=== PATIENT | female | born 1970 | race Caucasian/White ===

== ENCOUNTER 2017-09-26 20:06 | Emergency (ER) | payer MEDICAID, OTHER ==
[~2017-09-26] VITALS: Ht 162.6 cm; Wt 87.9 kg
[2017-09-26 20:10] VITALS: Ht 162.6 cm; Wt 87.9 kg
[2017-09-26] MEDS ORDERED: KETOROLAC 30 MG INJ IM STA (22:16)
[2017-09-26] MEDS ORDERED: LORAZEPAM 1 MG TAB PO ONE (22:30)
--- NOTE | 2017-09-26 23:22 | RADRPT ---
PROCEDURE: XR Chest. CLINICAL INDICATION: Shortness of breath status post breast biopsy TECHNIQUE: PA and Lateral views of the chest were obtained. COMPARISON: None. FINDINGS: The cardiomediastinal silhouette is within normal limits. The lungs are clear. No signs of pleural f luid or pneumothorax are seen. The osseous structures and soft tissues are unremarkable. IMPRESSION: No evidence for active cardiopulmonary disease. RPTAT: HJES .Pepe Mantilla MD, MD Date Time Electronically viewed and signed by .Pepe Mantilla MD, MD on 09/26/2017 23:22 .S/
[2017-09-26] MEDS ORDERED: IBUP-1542 PO (23:54)
[2017-09-27 00:01] VITALS: BP 125/65; PULSE 80; RESP 20; TEMP 98
--- NOTE | 2017-09-27 00:04 | ERD ---
ER Documentation Chief Complaint Chief Complaint left breast pain, left shoulder pain, back pain, sob today HPI Patient is a 47-year-old female with recent diagnosis of left sided breast cancer who presents to the ED for concerns of left-sided breast pain, left axillary pain and left-sided upper back pain which started 2 days ago. Patient states she underwent a needle biopsy on 09-23-17. At that time she was advised that she did have breast cancer and would need to start radiation therapy. Patient states she scheduled to follow-up with her doctor in 2 days. Patient states today she started to feel shortness of breath. Patient also reports feeling anxious. Patient denies any chest pain, left arm pain, diaphoresis, nausea, vomiting or loss consciousness. Denies any fevers or chills. Patient denies taking any medication for her pain. ROS All systems reviewed and are negative except as per history of present illness. Medications Home Meds Active Scripts Ibuprofen* (Motrin*) 600 Mg Tab, 600 MG PO Q6, #20 TAB Prov:GOVIND MORALES PA-C 09/26/17 Allergies Allergies: Coded Allergies: No Known Allergy (Unverified , 09/26/17) PMhx/Soc Medical and Surgical Hx: pt denies Surgical Hx Hx Miscellaneous Medical Probl: Yes (left breast CA newly dx on 09/23/17 ) Hx Alcohol Use: No Hx Substance Use: No Hx Tobacco Use: No Smoking Status: Never smoker Physical Exam Vitals Vital Signs Date Time Temp Pulse Resp B/P Pulse Ox O2 Delivery O2 Flow Rate FiO2 09/26/17 20:10 98.7 89 20 123/68 99 Physical Exam GENERAL: Well-developed, well-nourished female. Appears anxious. HEAD: Normocephalic, atraumatic. EYES: Pupils are equally reactive bilaterally. EOMs grossly intact. No conjunctival erythema. ENT: Moist mucous membranes. No uvula deviation. No kissing tonsils. NECK: Supple. Normal range of motion of the neck. Tender to palpation of the left trapezius muscle. CHEST WALL: Tender to palpation of the left chest wall. Pain is reproducible. BREAST: Left breast noted to have ecchymosis in the lower quadrants. Palpable mass at 4 oclock position. Left breast in tender to palpation. Tender to palpation in the L axilla. Ecchymosis noted in L axilla. LUNGS: Clear to auscultation bilaterally. No rhonchi, wheezing, rales or coarse breath sounds. HEART: Regular rate and rhythm. No murmurs, rubs or gallops. BACK: No midline tenderness. EXTREMITIES: Equal pulses bilaterally. No peripheral clubbing, cyanosis or edema. No unilateral leg swelling. NEUROLOGIC: Alert and oriented. Moving all four extremities without any difficulty. Normal speech. Steady gait. SKIN: Normal color. Warm and dry. No rashes or lesions. Results 24 hrs Laboratory Tests Test 09/26/17 22:51 Troponin I < 0.012ng/ml Current Medications Medications (Trade) Dose Ordered Sig/Rain Route PRN Reason Start Time Stop Time Status Last Admin Dose Admin Ketorolac Tromethamine (Toradol) 30 mg ONCE STAT IM 09/26/17 22:16 09/26/17 22:19 DC 09/26/17 22:46 Lorazepam (Ativan) 1 mg ONCE ONCE PO 09/26/17 22:30 09/26/17 22:31 DC 09/26/17 22:45 Procedures/MDM ED COURSE: The patient was stable throughout ED course. I kept the patient and/or family informed of laboratory and diagnostic imaging results throughout the ED course. EKG: Read by Dr. Hutchison, attending physician. EKG shows normal sinus rhythm at a rate of 73 bpm. No arrhythmias or acute ST elevations noted. DIAGNOSTIC IMAGING: Read by radiologist. Patient: GRICEL HILLMAN : 1970 Age: 47 Sex: F MR #: [id number] DOS: 09/26/17 2216 Ordering MD: GOVIND MORALES PA-C Location: [facility] Room/Bed: PROCEDURE: XR Chest. CLINICAL INDICATION: Shortness of breath status post breast biopsy TECHNIQUE: PA and Lateral views of the chest were obtained. COMPARISON: None. FINDINGS: The cardiomediastinal silhouette is within normal limits. The lungs are clear. No signs of pleural fluid or pneumothorax are seen. The osseous structures and soft tissues are unremarkable. IMPRESSION: No evidence for active cardiopulmonary disease. RPTAT: HJES .Pepe Mantilla MD, MD Date Time Electronically viewed and signed by .Pepe Mantilla MD, MD on 09/26/2017 23:22 .S/ CC: GOVIND MORALES PA-C PROCEDURES: None. MEDICATIONS GIVEN: Toradol, Ativan Patient tolerated medication well with no adverse reactions. MEDICAL DECISION MAKING: This is a 47-year-old female presents with left-sided breast pain, left axillary pain and shortness of breath. Patient went breast biopsy 3 days ago and was recently diagnosed with breast cancer.. Patient states her shortness of breath started earlier today. She denied taking any medication for her pain postbiopsy. Vital signs were reviewed. Patient was afebrile. Patient was not hypoxic. Cardiac exam was normal. Lung exam was normal. Ecchymosis is noted on the patient's left breast. Patient did have reproducible pain of her left chest wall and breast. Blood work was obtained. Troponin was negative. EKG showed normal sinus rhythm, no ST elevations. Chest x-ray was within normal limits. At this time by the patient's presentation is most consistent with left -sided breast pain and chest wall pain after biopsy. Low suspicion for ACS, carditis, arrhythmia, PE, pneumothorax, pneumonia, aortic dissection. Patient was advised to follow-up with her primary care physician for further management of her symptoms. Patient was noted to be less anxious and laughing with her friend at bedside prior to discharge. She reported significant improvement in symptoms prior to discharge and wished to go home. PRESCRIPTIONS: Ibuprofen DISCHARGE: At this time, patient is stable for discharge and outpatient management. I have instructed the patient to follow-up with his/her primary care physician in 1-2 days. If symptoms persist, patient may need to see a specialist for further examinations and testing. I have instructed the patient to promptly return to the ER at any time for any new or worsening symptoms including increased increased pain, fever, nausea, vomiting, numbness, weakness, diaphoresis or LOC. The patient and/or family expressed understanding of and agreement with this plan. All questions were answered. Home care instructions were provided. Disclaimer: Inadvertent spelling and grammatical errors are likely due to EHR/ dictation software use and do not reflect on the overall quality of patient care. Also, please note that the electronic time recorded on this note does not necessarily reflect the actual time of the patient encounter. Departure Diagnosis: Primary Impression: Breast pain Condition: Stable Patient Instructions: Breast Mass, Uncertain Cause Referrals: [facility] YOU HAVE RECEIVED A MEDICAL SCREENING EXAM AND THE RESULTS INDICATE THAT YOU DO NOT HAVE A CONDITION THAT REQUIRES URGENT TREATMENT IN THE EMERGENCY DEPARTMENT. FURTHER EVALUATION AND TREATMENT OF YOUR CONDITION CAN WAIT UNTIL YOU ARE SEEN IN YOUR DOCTORS OFFICE WITHIN THE NEXT 1-2 DAYS. IT IS YOUR RESPONSIBILITY TO MAKE AN APPOINTMENT FOR FOLOW-UP CARE. IF YOU HAVE A PRIMARY DOCTOR --you should call your primary doctor and schedule an appointment IF YOU DO NOT HAVE A PRIMARY DOCTOR YOU CAN CALL OUR PHYSICIAN REFERRAL HOTLINE AT IF YOU CAN NOT AFFORD TO SEE A PHYSICIAN YOU CAN CHOSE FROM THE FOLLOWING [facility] [address] [facility]. [facility] [address] [facility] [facility] [address] [facility] [address] [facility] [address] [facility]. [facility] [address] [facility]. [facility] YOU HAVE RECEIVED A MEDICAL SCREENING EXAM AND THE RESULTS INDICATE THAT YOU DO NOT HAVE A CONDITION THAT REQUIRES URGENT TREATMENT IN THE EMERGENCY DEPARTMENT. FURTHER EVALUATION AND TREATMENT OF YOUR CONDITION CAN WAIT UNTIL YOU ARE SEEN IN YOUR DOCTORS OFFICE WITHIN THE NEXT 1-2 DAYS. IT IS YOUR RESPONSIBILITY TO MAKE AN APPOINTMENT FOR FOLOW-UP CARE. IF YOU HAVE A PRIMARY DOCTOR --you should call your primary doctor and schedule and appointment IF YOU DO NOT HAVE A PRIMARY DOCTOR YOU CAN CALL OUR PHYSICIAN REFERRAL HOTLINE AT . IF YOU CAN NOT AFFORD TO SEE A PHYSICIAN YOU CAN CHOSE FROM THE FOLLOWING [facility] INSTITUTIONS: [facility] [address] [place] [address] [facility] [address] [place] [address] [facility] + [facility] [address] [place] [address] Additional Instructions: Call your primary care doctor TOMORROW for an appointment during the next 1-2 days.See the doctor sooner or return here if your condition worsens before your appointment time. GOVIND MORALES PA-C Sep 27, 2017 00:04
== END 2017-09-27 00:12 | disposition home or self-care (01) ==
LOC: FTE 20:06
DX: N64.4 Mastodynia (principal); C50.912 Malignant neoplasm of unspecified site of left female breast
CPT/HCPCS: 71020; 84484; 93005; 96372; J1885; Z7502; Z7610

== ENCOUNTER 2017-10-21 06:06 | Inpatient (IN) | payer MEDICAID ==
[~2017-10-21] VITALS: Ht 157.5 cm; Wt 86.5 kg
[2017-10-21] VITALS (26 sets, daily range): BP systolic 114–165; BP diastolic 50–83; PULSE 63–82; RESP 9–19; Ht 157.5 cm; Wt 86.5 kg
[2017-10-21] MEDS: SOD CHLORIDE 0.9% 1,000 ML IV SCH ×2 (06:00→19:20)
[~2017-10-21 06:06] MED LIST: CEFAZOLIN 1 GM/50 ML (PMX) 50 ML IVPB SCH; IBUP-1542 PO
[2017-10-21] MEDS ORDERED: LIDOCAINE 2% (SDV) 5 ML INJ ONE (07:03)
[2017-10-21] MEDS ORDERED: PROPOFOL 20 ML ONE (07:03)
[2017-10-21] MEDS ORDERED: MIDAZOLAM 1 MG/ML 2 ML INJ ONE (07:03)
[2017-10-21] MEDS ORDERED: FENTAnyl 50 MCG/ML VIAL ONE (07:03)
[2017-10-21] MEDS ORDERED: CEFAZOLIN 1 GM INJ ONE (07:04)
[2017-10-21] MEDS ORDERED: ONDANSETRON 4 MG INJ ONE (08:28)
[2017-10-21] MEDS ORDERED: METOCLOPRAMIDE 10 MG INJ ONE (08:28)
[2017-10-21] MEDS ORDERED: DEXAMETHASONE 4 MG/ML 1 ML INJ ONE (08:28)
[2017-10-21] MEDS ORDERED: FAMOTIDINE 20 MG INJ ONE (08:28)
[2017-10-21] MEDS ORDERED: HYDROmorphONE 2 MG/ML SYG ONE (08:47)
[2017-10-21] MEDS ORDERED: HYDROmorphONE (0.2 MG/ML) 10ML SYG IV PRN ×3 (09:00)
[2017-10-21] MEDS ORDERED: FENTAnyl 50 MCG/ML VIAL IV PRN ×3 (09:00)
[2017-10-21] MEDS ORDERED: DIPHENHYDRAMINE 50 MG INJ IV PRN (09:00)
[2017-10-21] MEDS ORDERED: OXYCODONE/ACETAMINOPHEN (5/325) TAB PO PRN ×2 (09:00)
[2017-10-21] MEDS ORDERED: ONDANSETRON 4 MG INJ IV PRN ×2 (09:00→10:00)
[2017-10-21] MEDS ORDERED: MEPERIDINE 25 MG INJ IV PRN (09:00)
[2017-10-21] MEDS ORDERED: PROCHLORPERAZINE 10 MG INJ IV PRN (09:00)
--- NOTE | 2017-10-21 09:45 | SIPON ---
Date/Time of Note Date/Time of Note DATE: 10/21/17 TIME: 09:44 Operative Report Preoperative Diagnosis Locally advanced left breast cancer Postoperative Diagnosis Same Operation/Procedure Performed Left modified radical mastectomy Surgeon see signature line records management assistant Dr Redman Anesthesia: general Estimated blood loss: 10 - 50 ml's Transfusion Required none Specimen Left breast and axillary contents Grafts/Implants none Complications none MAGALI NG MD Oct 21, 2017 09:45
[2017-10-21] MEDS ORDERED: EPHEDrine SULFATE 50 MG/5 ML SYG ONE (09:46)
[2017-10-21] MEDS ORDERED: ACETAMINOPHEN 1000MG/100ML IV 100 ML IVPB PRN (10:00)
[2017-10-21] MEDS ORDERED: LABETALOL HCL 20MG INJ IV PRN (10:00)
[2017-10-21] MEDS ORDERED: hydrALAzine 20 MG INJ IV PRN (10:00)
--- NOTE | 2017-10-21 10:28 | OPR ---
DATE OF OPERATION: 10/21/2017 PREOPERATIVE DIAGNOSIS: Locally advanced left breast cancer. POSTOPERATIVE DIAGNOSIS: Locally advanced left breast cancer. OPERATION PERFORMED: Left modified radical mastectomy. ANESTHESIA: General. ANESTHESIOLOGIST: Dr. Nova SURGEON: Dr. Travis CHIEF RESERVOIR ENGINEERING: Mikey Coburn MD INDICATIONS FOR PROCEDURE: The patient is a 47-year-old female who presented with a very large, at least 6 cm, mass in the central location within her left breast. She also had palpable axillary lym ph nodes. Workup including biopsies of both the mass and the lymph nodes were positive for invasive cancer. She was seen in the office and counseled as to the need for modified radical mastectomy as she was not a candidate for neoadjuvant chemo due to the fact that she was HER2 negative. She cons ented and she was scheduled for surgery. DESCRIPTION OF PROCEDURE: The patient was brought to the operating theater, placed under general an esthesia. The left breast and axillary region was prepped and draped in usual sterile fashion. Bob nned elliptical incision was demarcated with marking pen widely around the nipple areolar complex. The incision was carried out with 15 blade scalpel. Subcutaneous tissue was dissected with cautery. The skin edges were then elevated with Allis Shackelford clamps and skin flaps were created in a sequent ial fashion using cautery, first superiorly to the clavicle, then medially to the sternal border, in feriorly to the inframammary fold and laterally until the latissimus dorsi muscle had been identifie d throughout its course. Mastectomy then took place from medial to lateral using cautery. At the b order of the pectoralis major muscle, the pectoralis minor muscle was identified. The clavipectoral fascia was incised allowing entry into the axilla. With blunt dissection along the chest wall, the long thoracic nerve was identified. More superiorly, the axillary vein was identified. There was a large amount of metastatic disease within the lymph nodes necessitating en bloc resection of some intercostal brachial nerves. The lymphovascular structures were controlled by either using the Liga Sure device or using clips. Final connective tissue attachments to the latissimus dorsi muscle was then transected with cautery. Specimen was removed, oriented and sent for permanent pathologic anal ysis. There were additional palpable level 2 lymph nodes which were resected separately and sent fo r permanent pathologic analysis. The wound was then irrigated. Minimal bleeding was controlled with cautery. Two #10 flat Jesu-P ratt drains were then brought through the left mid axillary line. One was cut to size and laid with in the axilla, the other was laid over the pectoralis major muscle. Both drains were secured in bob ce with 2-0 nylon sutures in standard fashion, and final skin approximation took place using skin st aples. The patient tolerated procedure well. Estimated blood loss was 50 mL. There were no compli cations and the patient was transported in stable condition to the recovery room. Dictated By: MAGALI TRAVIS MD TL/LOGAN Conf#: [id number] DID#: [id number] CC: MIKEY COBURN MD;*EndCC*
[2017-10-21] MEDS: D5W-0.45 NACL + KCL 20 MEQ 1,000 ML IV SCH ×2 (11:09→21:47)
--- NOTE | 2017-10-21 12:53 | HP ---
DATE OF ADMISSION: 10/21/2017 HISTORY OF PRESENT ILLNESS: The patient is a 47-year-old pleasant female who had her 4th b ariana approximately 3 years ago and had trouble . The patient subsequently underwent fur ther evaluation and noted to have a very large mass in the central location of her left breast. She also had palpable axillary lymph node. Subsequent biopsy of the mass was positive for invasive can cer. Patient is ER/MN positive and HER2 negative. The patient is not a candidate for neoadjuvant c hemotherapy and patient was evaluated by Dr. Travis and was brought to the hospital and underwent a l eft modified radical mastectomy today. Postoperatively, patient is experiencing moderate pain and p atient will be admitted for further management. PAST MEDICAL HISTORY: Patient denies having any chronic conditions. Stated that she is otherwise h ealthy. PAST SURGICAL HISTORY: The patient denies having surgeries in the past. FAMILY HISTORY: Negative for any ovarian and breast cancer. SOCIAL HISTORY: Patient lives at home with her family, has 4 kids. The patient denies any alcohol use. Denies any tobacco use, denies any illicit drug use. ALLERGIES: NO KNOWN ALLERGIES. HOME MEDICATIONS: Ibuprofen p.r.n. for pain. REVIEW OF SYSTEMS: A 12-point review of systems negative unless what mentioned in the HPI. PHYSICAL ASSESSMENT: GENERAL: Well-developed, obese female currently is awake, alert, in no acute distress. VITAL SIGNS: Temperature is 98.2, pulse is 70, blood pressure 139/58, respiratory rate 19, oxygen s aturation 98% on 2 liters nasal cannula. HEENT: Head is atraumatic, normocephalic. Pupils equal, round, reactive to light and accommodation . Oral mucosa is pink and moist. NECK: Supple, no cervical lymphadenopathy, no thyromegaly. LUNGS: Clear bilaterally. There is no rhonchi, wheezes, rales noted. CARDIOVASCULAR: Normal S1, S2. No murmurs, gallops . CHEST: Status post left mastectomy with dry, clean, intact dressing and axillary JPs x2. ABDOMEN: Protuberant, soft, nondistended, nontender. Bowel sounds present. There is no guarding, no rebound or tenderness. EXTREMITIES: No edema, clubbing, cyanosis. SKIN: There is no rash, petechiae noted. NEUROLOGIC: The patient is awake, alert and oriented x4. No focal deficits noted. Motor strength is 5/5 in all extremities. ASSESSMENT AND PLAN: 1. Locally advanced left breast cancer status post left modified radical mastectomy by Dr. Travis on 10/21/2017. Will continue postoperative antibiotics and IV fluids, morphine and acetaminophen p.r. n. for pain and Zofran p.r.n. for nausea. Sequential compression device for deep venous thrombosis prophylaxis. 2. Obesity with body mass index of 34.9. Further recommendations based on clinical course. Plan o f care discussed with Dr. Donahue. Dictated By: ORTIZ MOORE GOLF BALL TRIMMER for SANJIV DONAHUE MD SR/NTS Conf#: [id number] DID#: [id number]
[2017-10-21] MEDS: morphine 2 MG INJ IV PRN (16:10)
[2017-10-22 00:12] VITALS: BP 99/50; RESP 18
[2017-10-22] MEDS: D5W-0.45 NACL + KCL 20 MEQ 1,000 ML IV SCH ×2 (01:45→08:45)
[2017-10-22] MEDS: morphine 2 MG INJ IV PRN ×2 (03:32→08:45)
[2017-10-22 05:24] LABS: BASOPHILS % 0.2 % (0.0-2.0); EOSINOPHILS # 0.1 10^3/ul (0.0-0.5); EOSINOPHILS % 0.5 % (0.0-7.0); HEMATOCRIT 32.6 % (37.0-47.0); HEMOGLOBIN 10.7 g/dl (12.0-16.0); LYMPHOCYTES # 2.4 10^3/ul (0.8-2.9); LYMPHOCYTES % 21.7 % (15.0-51.0); MEAN CORPUSCULAR HEMOGLOBIN 29.6 pg (29.0-33.0); MEAN CORPUSCULAR HGB CONC 32.8 g/dl (32.0-37.0); MEAN CORPUSCULAR VOLUME 90.1 fl (82.0-101.0); MEAN PLATELET VOLUME 11.2 fl (7.4-10.4); MONOCYTE # 0.8 10^3/ul (0.3-0.9); MONOCYTES % 7.1 % (0.0-11.0); NEUTROPHIL # 7.7 10^3/ul (1.6-7.5); PLATELET COUNT 218 10^3/UL (140-415); RED BLOOD COUNT 3.62 10^6/ul (4.20-5.40)
[2017-10-22 05:53] LABS: CALCIUM 8.5 mg/dl (8.4-10.2); CREATININE 0.74 mg/dl (0.44-1.00); POTASSIUM 4.1 mmol/L (3.5-5.1)
[2017-10-22 07:48] VITALS: BP 99/54; RESP 18
[2017-10-22] MEDS ORDERED: HYDR-906 PO (14:15)
--- NOTE | 2017-10-22 16:30 | DS ---
Date/Time of Note Date/Time of Note DATE: 10/22/17 TIME: 16:29 Discharge Summary Admission/Discharge Info Admit Date/Time Oct 21, 2017 at 09:45 Discharge Date/Time Patient Condition: Stable Hx of Present Illness The patient is a 47-year-old pleasant female who had her 4th baby approximately 3 years ago and had trouble . The patient subsequently underwent further evaluation and noted to have a very large mass in the central location of her left breast. She also had palpable axillary lymph node. Subsequent biopsy of the mass was positive for invasive cancer. Patient is ER/[place] positive and HER2 negative. The patient is not a candidate for neoadjuvant chemotherapy and patient was evaluated by Dr. Travis and was brought to the hospital and underwent a left modified radical mastectomy today. Postoperatively, patient is experiencing moderate pain and patient will be admitted for further management. Hospital Course 1. Locally advanced left breast cancer status post left modified radical mastectomy by Dr. Travis on 10/21/2017. Will continue postoperative antibiotics and IV fluids, morphine and acetaminophen p.r.n. for pain and Zofran p.r.n. for nausea. Sequential compression device for deep venous thrombosis prophylaxis. D /W Dr Redman, d/c planning. 2. Obesity with body mass index of 34.9. Plan of care discussed with Dr. Donahue. Home Meds Active Scripts Ibuprofen* (Motrin*) 600 Mg Tab, 600 MG PO Q6, #20 TAB Prov:GOVIND MORALES PA-C 09/26/17 Follow-up Plan Follow-up with Dr. Travis in 1 week Primary Care Provider Not On Staff Doctor Pending Labs Laboratory Tests Test 10/22/17 04:50 White Blood Count 11.010^3/ul (4.8-10.8) Red Blood Count 3.6210^6/ul (4.20-5.40) Hemoglobin 10.7g/dl (12.0-16.0) Hematocrit 32.6% (37.0-47.0) Mean Corpuscular Volume 90.1fl (82.0-101.0) Mean Corpuscular Hemoglobin 29.6pg (29.0-33.0) Mean Corpuscular Hemoglobin Concent 32.8g/dl (32.0-37.0) Red Cell Distribution Width 13.0% (11.5-14.5) Platelet Count 50592^3/UL (140-415) Mean Platelet Volume 11.2fl (7.4-10.4) Neutrophils % 70.0% (39.0-77.0) Lymphocytes % 21.7% (15.0-51.0) Monocytes % 7.1% (0.0-11.0) Eosinophils % 0.5% (0.0-7.0) Basophils % 0.2% (0.0-2.0) Nucleated Red Blood Cells % 0.0/100WBC (0.0-0.0) Neutrophils # 7.710^3/ul (1.6-7.5) Lymphocytes # 2.410^3/ul (0.8-2.9) Monocytes # 0.810^3/ul (0.3-0.9) Eosinophils # 0.110^3/ul (0.0-0.5) Basophils # 0.010^3/ul (0.0-0.1) Nucleated Red Blood Cells # 0.010^3/ul (0.0-0.0) Sodium Level 140mmol/L (135-144) Potassium Level 4.1mmol/L (3.5-5.1) Chloride Level 109mmol/L (97-110) Carbon Dioxide Level 22mmol/L (21-31) Anion Gap 13 (8-16) Blood Urea Nitrogen 10mg/dl (7-20) Creatinine 0.74mg/dl (0.44-1.00) Glucose Level 133mg/dl (70-220) Calcium Level 8.5mg/dl (8.4-10.2) ORTIZ MOORE Oct 22, 2017 16:30
--- NOTE | 2017-10-22 19:25 | PN ---
DATE: 10/22/2017 Postop day #1 status post left modified radical mastectomy with axillary dissection SUBJECTIVE: Complains of some degree of pain, otherwise no other complaints. OBJECTIVE: GENERAL: Alert, awake, oriented x3. VITAL SIGNS: Temperature 98.5, heart rate 75, respirations 18, blood pressure 99/50, saturation 97% on room air. HEART: Regular Clear. ABDOMEN: Soft. Dressing had to be revised. The dressing is dry. Jesu-Lozano drain, there is 2 of them. They have drained respectively #1 and #2, 45 mL and 90 mL ____. LABORATORY DATA: WBC 11,000, hemoglobin 10.7, hematocrit 32.6. Differential is normal, 70%. Chemi stry: Sodium, potassium, BUN, creatinine normal. ASSESSMENT AND PLAN: The patient remains stable. The patient was taught how to take care of the J ackson-Lozano drains and how to measure ____. The patient to call Dr. Travis' office and make an appo intment for followup. Pain medication ____ nurse practitioner. Dictated By: YEN COBURN MD PS/NTS Conf#: [id number] DID#: [id number]
== END 2017-10-22 17:15 | disposition home or self-care (01) | DRG 580 ==
LOC: SDS 06:06 → REC 09:45 → MS1 13:23
PROVIDERS: ADMIT Surgery Surgical Oncology; ATTEND Surgery Surgical Oncology
PROC: 0HTU0ZZ Resection of Left Breast, Open Approach (ICD-10-PCS; 2017-10-21)
PROC: 07B60ZZ Excision of Left Axillary Lymphatic, Open Approach (ICD-10-PCS; 2017-10-21)
PROC: 0KBJ0ZZ Excision of Left Thorax Muscle, Open Approach (ICD-10-PCS; principal; 2017-10-21 07:30)
DX: C50.912 Malignant neoplasm of unspecified site of left female breast (principal); C77.3 Secondary and unspecified malignant neoplasm of axilla and upper limb lymph nodes; Z17.0 Estrogen receptor positive status [ER+]; E66.9 Obesity, unspecified; Z68.34 Body mass index [BMI] 34.0-34.9, adult
CPT/HCPCS: 80048; 84703; 85025; 88307; J0131; J0690; J1100; J1170; J2175; J2250; J2270; J2405; J2765; J3010; J3480; J7030

== ENCOUNTER 2017-12-25 06:58 | Day surgery (SDC) | END 2017-12-25 13:55 | disposition home or self-care (01) ==

== ENCOUNTER 2018-01-09 20:13 | Emergency (ER) | END 2018-01-10 03:11 | disposition home or self-care (01) ==